=== PATIENT | female | born 1945 | race Caucasian/White ===

== ENCOUNTER 2017-03-20 09:20 | Inpatient (IN) ==
[2017-03-20] MEDS ORDERED: Norepinephrine 4 MG in D5% in Water 250 ML IVC SCH (13:45)
[2017-03-20] MEDS ORDERED: *HR* Dextrose 50 % in Water (Syg) 50 ML SYRINGE IVP PRN (13:48)
[2017-03-20 13:51] LABS: ABG Base Excess -15 mEq/L (-2 to 3); ABG HCO3 15 mEq/L (21-27); ABG Oxygen Saturation 92 % (95-98); ABG PCO2 46 mmHg (35-45); ABG PH 7.11 pH Units (7.32-7.45); ABG PO2 85 mmHg (85-104); ABG TCO2 16 mEq/L (20-26); Blood Gas Modality ASSIST CONTROL; Blood Gas PEEP 8 cm H2O; Blood Gas Respiration Rate 16; Blood Gas VT 550 cc
[2017-03-20] MEDS ORDERED: Insulin Human Regular 100 UNIT in 0.9 % Sodium Chloride 100 ML IVC SCH (14:00)
[2017-03-20 14:06] LABS: INR 1.2; Prothrombin Time 13.2 Seconds (9.4-12.1)
[2017-03-20 14:09] LABS: Activated Partial Thrombo Time 27.9 Seconds (26.0-36.0); Hematocrit 42.3 % (35.3-44.9); Hemoglobin 12.6 g/dL (11.5-15.4); Mean Corpuscular HGB Conc 29.8 g/dL (31.6-35.5); Mean Corpuscular Hemoglobin 29.9 pg (28.0-33.3); Mean Corpuscular Volume 100.5 fL (83.0-100.0); Mean Platelet Volume 9.6 fL (9.4-12.4); Nucleated Red Blood Cells 0.3 /100 WBC (0); Platelet Count 263 K/mcL (140-400); Red Blood Count 4.21 M/mcL (3.82-4.97)
[2017-03-20] MEDS ORDERED: 0.9 % Sodium Chloride 500 ML ONE (14:22)
[2017-03-20 14:24] LABS: Albumin 3.1 g/dL (3.5-5.7); Albumin/Globulin Ratio 1.4 (1.1-2.2); Bilirubin,Total 1.2 mg/dL (0.3-1.0); Calcium 7.1 mg/dL (8.6-10.3); Globulin 2.2 g/dL (2.4-3.5); Potassium 6.8 mEq/L (3.5-5.1); Total Protein 5.3 g/dL (6.4-8.9)
[2017-03-20 14:29] LABS: ABG Base Excess -21 mEq/L (-2 to 3); ABG HCO3 12 mEq/L (21-27); ABG Oxygen Saturation 86 % (95-98); ABG PCO2 58 mmHg (35-45); ABG PH 6.93 pH Units (7.32-7.45); ABG PO2 83 mmHg (85-104); ABG TCO2 14 mEq/L (20-26); Blood Gas PEEP 10 cm H2O
[2017-03-20] MEDS ORDERED: Sodium Bicarbonate 150 MEQ in D5% in Water 1,000 ML IVC SCH (14:30)
[2017-03-20] MEDS ORDERED: Insulin Human Regular 10 UNIT in 0.9 % Sodium Chloride 10 ML IV ONE (14:30)
[2017-03-20 14:41] LABS: Lymphocytes # 1.6 K/mcL (0.6-4.6); Monocytes # 0.8 K/mcL (0.0-1.3); Platelet Estimate Normal (Normal)
--- NOTE | 2017-03-20 14:46 | Death Note ---
<Taqueria Morris - Last Filed: 03/20/17 17:32> Discharge Sum: Summary - Date and Time Date of admission: 03/20/17 13:25 Date of : 03/20/17 Time of : 14:36 - Summary Details: Code called at 14:06 Patient had just arrived from outside hospital. Patient transferred to higher level of care for DKA, SBO, Septic shock, acute respiratory failure. Initial orders for labs, Pressors, and insulin drip placed. Patient was getting a CXR when patient went into cardiac arrest. CPR was initiated and several rounds were performed with administration of Bicarb, epinepherine, and calcium gluconate. ROSC was achieved for several minutes but patient recoded and ultimately . - Additional Data Confirmation of as documented by pronouncing clinician: no pulse, no respirations Family: contacted Attending/PCP notified?: Yes Attending physician: Scot Loja MD Was code activated?: Yes Discharge Sum: Diag - PCOD Probable Cause of : Cardiac arrest Discharge Sum: Prov - Provider Primary care physician: PCP NONE Admitting clinician: Scot Loja Attending physician on admission: Scot Loja Consults: 03/20/17 13:42 Consult to Surgery [CONS] Routine Consulting Provider: [facility] Reason for Consult: SBO Transferred from outside hospital Call Completed: Yes Pronouncing clinician: Scot Loja <Scot Loja - Last Filed: 03/20/17 18:32> Discharge Sum: Summary - Date and Time Date of admission: 03/20/17 13:25 - Additional Data Attending physician: Scot Loja MD Discharge Sum: Prov - Provider Primary care physician: PCP NONE Consults: 03/20/17 13:42 Consult to Surgery [CONS] Routine Consulting Provider: [facility] Reason for Consult: SBO Transferred from outside hospital Call Completed: Yes - Attending Attestation I examined this patient and my medical decision-making was reviewed with the Resident Physician. I agree with the documented findings, disposition and treatment plan as described except to the extent set forth below.
--- NOTE | 2017-03-20 14:46 | Pulmonology History & Physical ---
<MarsharamoneTaqueria - Last Filed: 03/20/17 16:36> Date of Encounter: 03/20/17 Time of Encounter: 14:46 Assessment and Plan (1) DKA (diabetic ketoacidoses) Current visit: Yes Status: Acute Patient found to be in DKA at OSH Transferred to [facility] for higher level of care. Plan: Start insulin drip Recheck CMP, EKG Qualifiers: Diabetes mellitus type: type 2 Diabetes mellitus complication detail: without coma Qualified Code(s): E11.10 - Type 2 diabetes mellitus with ketoacidosis without coma (2) Hyperkalemia Current visit: Yes Status: Acute Patient was found to be hyperkalemic at OSH 7.4 Plan: repeat BMP Patient started on insulin drip (3) Respiratory failure with hypoxia and hypercapnia Current visit: Yes Status: Acute Patient required intubation at OSH likely 2/2 to sepsis, CHF, possible PNA. Plan: continue mechanical ventilation Adjust vent settings as needed Qualifiers: Chronicity: unspecified Qualified Code(s): J96.91 - Respiratory failure, unspecified with hypoxia; J96.92 - Respiratory failure, unspecified with hypercapnia; J96.92 - Respiratory failure, unspecified with hypercapnia; J96.92 - Respiratory failure, unspecified with hypercapnia (4) Sepsis Current visit: Yes Status: Acute Patient went into shock at OSH likely 2/2 to sepsis source undetermined, Suspected PNA at OSH UA not indicative of UTI Plan: checking CBC CMP, Lactic acid, CXR, ABG, EKG, tropponin, CT abd/pelvis, bcx change abx to levaquin and flagyl continue to monitor continue levophed Qualifiers: Sepsis type: sepsis due to unspecified organism Qualified Code(s): A41.9 - Sepsis, unspecified organism (5) SBO (small bowel obstruction) Current visit: Yes Status: Acute Patient transferred to [facility] partly to access surgery for SBO Surgery consult placed. images not sent over with patient Plan: Rechecking CMP recheck CT abd pelvis with oral contrast (6) Diabetes mellitus Current visit: Yes Status: Acute Pt with a history of DM per report from OSH Plan: obtain more history from outside hospital continue insulin drip per protocol for DKA Qualifiers: Diabetes mellitus type: type 2 Diabetes mellitus complication status: with unspecified complications Diabetes mellitus manager long term care insulin use: unspecified prison insulin use status Qualified Code(s): E11.8 - Type 2 diabetes mellitus with unspecified complications (7) CKD (chronic kidney disease) Current visit: Yes Status: Acute Qualifiers: Chronic kidney disease stage: unspecified stage Qualified Code(s): N18.9 - Chronic kidney disease, unspecified History of Present Illness Chief complaint: SBo, DKA, Cardiac Arrest HPI: Ms. Sy is a 71 year old female c PMHx of DM and CKD who presented as a direct transfer from [facility] in [place] via [facility] transport services. Patient was admitted there for Nausea and Vomiting and was found to have a small bowel obstruction, and to be in DKA. Patient went into shock due to suspected sepsis. Patient was also found to be hyperkalemic. Patient was transferred to [facility] for higher level of care after exhausting closer options. Patient arrived with levophed at 0.5 mcg/kg/min and D5W with 15 units Novolog at 75 ml/hr infusing through right femoral CVC. Patient connected to engine monitor, continuous NIBP, and ventilator. Patient was unresponsive with jerking and twitching motions. Medications and Allergies 3 Allergy/AdvReac Type Severity Reaction Status Date / Time Sulfa (Sulfonamide Allergy unknown Unverified 03/20/17 13:42 Antibiotics) ROS unobtainable: due to endotracheal tube, due to mental status All Systems: A 10-system review of systems was performed and is negative for pertinent findings except as documented above in the HPI. Physical Examination General appearance: other (unresponsive, intubated) Effort: mildly labored Auscultation: bilateral: rhonchi Cardiovascular: irregular rhythm Gastrointestinal: hypoactive bowel sounds, other (distended) Extremities: edema unable to assess due to mental status Results - Laboratory Findings CBC and BMP: 03/20/17 13:45 03/20/17 13:45 ABG ABG pH 6.93 pH Units (7.32-7.45) L* D 03/20/17 14:25 ABG pCO2 58 mmHg (35-45) H 03/20/17 14:25 ABG pO2 83 mmHg (85-104) L 03/20/17 14:25 ABG O2 Saturation 86 % (95-98) L 03/20/17 14:25 PT/INR, D-dimer PT 13.2 Seconds (9.4-12.1) H 03/20/17 13:45 Abnormal lab findings: Abnormal lab results MCV 100.5 fL (83.0-100.0) H 03/20/17 13:45 MCHC 29.8 g/dL (31.6-35.5) L 03/20/17 13:45 RDW 16.0 % (11.5-14.5) H 03/20/17 13:45 Band Neutrophils % 7.0 % (0-4) H 03/20/17 13:45 Nucleated RBCs/100 WBC 0.3 /100 WBC (0) H 03/20/17 13:45 PT 13.2 Seconds (9.4-12.1) H 03/20/17 13:45 ABG pH 6.93 pH Units (7.32-7.45) L* D 03/20/17 14:25 ABG pCO2 58 mmHg (35-45) H 03/20/17 14:25 ABG pO2 83 mmHg (85-104) L 03/20/17 14:25 ABG HCO3 12 mEq/L (21-27) L 03/20/17 14:25 ABG Total CO2 14 mEq/L (20-26) L 03/20/17 14:25 ABG O2 Saturation 86 % (95-98) L 03/20/17 14:25 ABG Base Excess -21 mEq/L (-2 to 3) L 03/20/17 14:25 Sodium 130 mEq/L (136-145) L 03/20/17 13:45 Potassium 6.8 mEq/L (3.5-5.1) H* 03/20/17 13:45 Carbon Dioxide 15 mEq/L (23-29) L 03/20/17 13:45 BUN 42 mg/dL (8-23) H 03/20/17 13:45 Creatinine 4.66 mg/dL (0.60-1.20) H 03/20/17 13:45 Est GFR ( Amer) 11 (> 60) L 03/20/17 13:45 Est GFR (Non-Af Amer) 9 (> 60) L 03/20/17 13:45 Glucose 338 mg/dL (70-105) H 03/20/17 13:45 POC Glucose 292 (58-89) H 03/20/17 13:43 Lactic Acid 2.8 mmol/L (0.5-2.2) H 03/20/17 13:45 Calcium 7.1 mg/dL (8.6-10.3) L 03/20/17 13:45 Total Bilirubin 1.2 mg/dL (0.3-1.0) H 03/20/17 13:45 AST 175 Units/L (13-39) H 03/20/17 13:45 ALT 66 Units/L (7-52) H 03/20/17 13:45 Troponin I 0.78 ng/mL (< 0.04) H* 03/20/17 13:45 Serum Total Protein 5.3 g/dL (6.4-8.9) L 03/20/17 13:45 Albumin 3.1 g/dL (3.5-5.7) L 03/20/17 13:45 Globulin 2.2 g/dL (2.4-3.5) L 03/20/17 13:45 <Scot Loja W - Last Filed: 03/20/17 18:31> Date of Encounter: 03/20/17 History of Present Illness HPI: Ms. Sy is a 71 year old female All Systems: A 10-system review of systems was performed and is negative for pertinent findings except as documented above in the HPI. Results - Laboratory Findings CBC and BMP: 03/20/17 13:45 03/20/17 13:45 ABG ABG pH 6.93 pH Units (7.32-7.45) L* D 03/20/17 14:25 ABG pCO2 58 mmHg (35-45) H 03/20/17 14:25 ABG pO2 83 mmHg (85-104) L 03/20/17 14:25 ABG O2 Saturation 86 % (95-98) L 03/20/17 14:25 PT/INR, D-dimer PT 13.2 Seconds (9.4-12.1) H 03/20/17 13:45 Abnormal lab findings: Abnormal lab results MCV 100.5 fL (83.0-100.0) H 03/20/17 13:45 MCHC 29.8 g/dL (31.6-35.5) L 03/20/17 13:45 RDW 16.0 % (11.5-14.5) H 03/20/17 13:45 Band Neutrophils % 7.0 % (0-4) H 03/20/17 13:45 Nucleated RBCs/100 WBC 0.3 /100 WBC (0) H 03/20/17 13:45 PT 13.2 Seconds (9.4-12.1) H 03/20/17 13:45 ABG pH 6.93 pH Units (7.32-7.45) L* D 03/20/17 14:25 ABG pCO2 58 mmHg (35-45) H 03/20/17 14:25 ABG pO2 83 mmHg (85-104) L 03/20/17 14:25 ABG HCO3 12 mEq/L (21-27) L 03/20/17 14:25 ABG Total CO2 14 mEq/L (20-26) L 03/20/17 14:25 ABG O2 Saturation 86 % (95-98) L 03/20/17 14:25 ABG Base Excess -21 mEq/L (-2 to 3) L 03/20/17 14:25 Sodium 130 mEq/L (136-145) L 03/20/17 13:45 Potassium 6.8 mEq/L (3.5-5.1) H* 03/20/17 13:45 Carbon Dioxide 15 mEq/L (23-29) L 03/20/17 13:45 BUN 42 mg/dL (8-23) H 03/20/17 13:45 Creatinine 4.66 mg/dL (0.60-1.20) H 03/20/17 13:45 Est GFR ( Amer) 11 (> 60) L 03/20/17 13:45 Est GFR (Non-Af Amer) 9 (> 60) L 03/20/17 13:45 Glucose 338 mg/dL (70-105) H 03/20/17 13:45 POC Glucose 292 (58-89) H 03/20/17 13:43 Lactic Acid 2.8 mmol/L (0.5-2.2) H 03/20/17 13:45 Calcium 7.1 mg/dL (8.6-10.3) L 03/20/17 13:45 Total Bilirubin 1.2 mg/dL (0.3-1.0) H 03/20/17 13:45 AST 175 Units/L (13-39) H 03/20/17 13:45 ALT 66 Units/L (7-52) H 03/20/17 13:45 Troponin I 0.78 ng/mL (< 0.04) H* 03/20/17 13:45 Serum Total Protein 5.3 g/dL (6.4-8.9) L 03/20/17 13:45 Albumin 3.1 g/dL (3.5-5.7) L 03/20/17 13:45 Globulin 2.2 g/dL (2.4-3.5) L 03/20/17 13:45 - Attending Attestation I examined this patient and my medical decision-making was reviewed with the Resident Physician. I agree with the documented findings, disposition and treatment plan as described except to the extent set forth below. We independently had [id number] contact with the patient I spent 60min of Critical Care time with this patient. It involved decision making of high complexity to assess, manipulate, and support vital organ system failure and/or to prevent further life threatening deterioration of the patient' s condition. The time involved in the performance of separately reportable procedures was not counted toward critical care time. Patient seen and examined at bedside Labs, radiology, chart personally reviewed. This is an unfortunate 71-year-old woman who was at an outside facility pending transfer to ICU where an buffet runner was available and there is surgical consultation (general surgery here at [facility] here was agreeable to consult on this case). She was diagnosed earlier yesterday with a a complete small bowel obstruction acute on chronic kidney injury sepsis shock hyperkalemia and lactic acidosis along with DKA. She had been intubated at the outside facility and started on vasopressor support. On admission to ED patient was unresponsive on the vent she had received sedation for agitation in [facility] however by [facility] per their report She had acceptable oxygenation on admission Initial blood gas on arrival showed a mixed respiratory metabolic acidosis and had just the ventilator settings to increase her minute ventilation. She also had evidence of hyperglycemia She was hypotensive requiring continuous vasopressor support mean arterial pressure was around 60 Staff was attempting to stabilize patient on admission initial labs were obtained and sent including CBC and CMP lactate and coags. Chest x-ray was also ordered. Vasopressor supporte was maintained. Insulin infusion was ordered for DKA. Also ordered a CT of the abdomen and pelvis to evaluate the small bowel obstruction as the images of her abdomen and pelvis outside facility were not sent in transport and the urgency of this could not be delayed for obtaining outside hospital records to physical facilitate/expedite surgical evaluation Unfortunately within in an hour of admission to the ICU patient became bradycardic and went into asystole. ACLS was started general rhythm throughout the code was PEA however she did have one run of ventricular tachyarrhythmia for which cardioversion was performed. In total 3 cycles ACLS performed with ROSC and vasopressor was restarted. A byproduct of CPR caused significant chest trauma with notable hemorrhage from endotracheal tube which impaired oxygenation requiring continuous bagging. Unfortunately several minutes later patient became bradycardic and then despite vasopressor support and had another cardiac arrest at that time for cycles of CPR was performed I called the son and the daughter who are her healthcare power of plaster machine operator's I spent the situation and they were adamant that her mother would not want to continue in this situation as her goals were not to be kept alive if she had to be chronically debilitated dependent on machines I expressed that her overall prognosis was essentially nil at this point and continue CPR was in my estimation to be futile. Subsequent to this conversation ACLS was terminated. After the patient was pronounced I called the son and the daughter back in the presence of the bedside ICU nurse (Iva) and offered my condolences and explanation of the sequence of events which in my opinion resulted from septic shock and severe metabolic acidemia leading to hyperkalemia which likely led to cardiac arrest. My condolences to the family was offered all questions answered both the son and the daughter thanked our team for our efforts to stabilize the patient.
[2017-03-20] MEDS ORDERED: *HR* EPINEPHrine 1 MG/10 ML SYRINGE IVP ONE (18:24)
== END 2017-03-20 18:25 | disposition expired | DRG 871 ==
LOC: ICNU 13:25
PROVIDERS: ADMIT Internal Medicine Hospice and Palliative Medicine; ATTEND Internal Medicine Hospice and Palliative Medicine